=== PATIENT | female | born 1980 | race Caucasian/White ===

== ENCOUNTER 2019-09-27 04:52 | Inpatient (IN) | payer OTHER ==
[2019-09-27] MEDS ORDERED: Zofran 4 MG/2 ML VIAL ONE ×2 (05:12→05:17)
[2019-09-27] MEDS ORDERED: Zofran 4 MG/2 ML VIAL IV ONE (05:12)
[2019-09-27 05:45] LABS: ALKALINE PHOSPHATASE 44 U/L (38-126); ANION GAP 12.3 MEQ/L (5-15); BLOOD UREA NITROGEN 7 mg/dL (7-17); CHLORIDE 102 mmol/L (98-107); Calcium 8.7 mg/dL (8.4-10.2); Carbon Dioxide 28 mmol/L (22-30); Creatinine 1 0.74 mg/dL (0.52-1.04); Glucose 136 mg/dL (74-106); Potassium 3.5 mmol/L (3.5-5.1); SGOT/AST 61 U/L (14-36); SGPT/ALT 65 U/L (0-35); SODIUM 139 mmol/L (137-145); Total Protein 7.8 g/dL (6.3-8.2)
[2019-09-27 06:15] LABS: Hematocrit 41.6 % (35-47); Hemoglobin 13.7 gm/dl (12.0-16.0); Mean Cell Volume 99.3 fl (78-100); Mean Corpuscular Hemoglobin 32.7 pg (26-32); Mean Corpuscular Hgb Concent. 32.9 g/dl (32-36); Mean Platelet Volume 10.1 fl (7.5-11.0); Neutrophil % 85.5 % (36.0-66.0); Platelet Count 170 K/mm3 (150-450); Red Blood Count 4.19 M/mm3 (4.1-5.4); Red Cell Distribution Width 13.3 % (11.5-14.0)
[2019-09-27 06:16] LABS: Absolute Neutrophil Ct (ANC) 7.71 (1.4-6.9); BASOPHIL % 0.1 % (0.0-0.4); Basophil (Absolute #) 0.01 (0-0.4); Eosinophil (Absolute #) 0 (0-0.5); Lymphocytes % 8.9 % (24.0-44.0); Monocytes % 5.5 % (0.0-12.0)
--- NOTE | 2019-09-27 06:26 | ERPHSYRPT ---
- History of Present Illness Time Seen by Provider: 09/27/19 05:50 Source: patient Exam Limitations: no limitations Patient Subjective Stated Complaint: SOB Triage Nursing Assessment: Patient ambulated into ED and transferred self to bed. Patient A+O x3. Patient's skin flushed, warm and dry. Patient complains of increased SOB. Patient tested positive for COVID on Monday. Patient complains of N/V and diarrhea. Lungs clear a/p [place]. Non productive dry hacking cough. Patient complains of body aches to entire body 5/10. Physician History: Patient is a 38-year-old female presents to our ED for evaluation of nausea and vomiting. Patient is COVID positive. Symptoms started last Monday. Patient tested positive on Monday. Patient felt unwell throughout the weekend. [facility]. Patient was treated with IV fluids and discharged. Patient is here today as her symptoms have progressed. She cannot tolerate p.o. Patient complains of myalgias throughout her body. No fever. No worsening of shortness of breath. Symptoms are progressive. Symptoms are moderate in intensity. No specific worsening improving factors. Patient voices no other complaints at this time. Timing/Duration: week(s) Severity: moderate Modifying Factors: Improves With: nothing Associated Symptoms: nausea, vomiting, cough Allergies/Adverse Reactions: No Known Drug Allergies Allergy (Unverified 08/07/12 01:32) Home Medications: Aspirin 81 gm Chew 81 mg PO DAILY 11/20/11 [History] Ibuprofen DAILY 08/07/12 [History] Hx Tetanus, Diphtheria Vaccination/Date Given: Yes Hx Influenza Vaccination/Date Given: Yes Hx Pneumococcal Vaccination/Date Given: No Immunizations Up to Date: Yes Travel Risk - International Travel Have you traveled outside of the country in past 3 weeks: No Have you or anyone close to you been diagnosed with or: Yes Do your reside in a community with a known COVID-19 case?: Yes If Yes where:: [facility] - Coronavirus Screening Has patient experienced Coronavirus symptoms: Yes Symptoms experienced: fever(equal or > 100.4 F), respiratory symptoms ( i.e.Cought,shortness of breath), muscle pain, weakness Date of fever onset:: 09/25/19 Date of respiratory symptoms onset:: 09/20/19 - Review of Systems Constitutional: No Symptoms, No Fever, No Chills Eyes: No Symptoms Ears, Nose, & Throat: No Symptoms Respiratory: No Symptoms, No Cough, No Dyspnea Cardiac: No Symptoms, No Chest Pain, No Edema, No Syncope Abdominal/Gastrointestinal: No Symptoms, No Abdominal Pain, No Nausea, No Vomiting, No Diarrhea Genitourinary Symptoms: No Symptoms, No Dysuria Musculoskeletal: No Symptoms, No Back Pain, No Neck Pain Skin: No Rash Neurological: No Dizziness, No Focal Weakness, No Sensory Changes Psychological: No Symptoms Endocrine: No Symptoms All Other Systems: Reviewed and Negative - Past Medical History Pertinent Past Medical History: Yes Other Medical History: vericose vein pain - Past Surgical History Past Surgical History: Yes Gastrointestinal: Cholecystectomy Female Surgical History: Section Other Surgical History: tonsils. bilat uretal implants - Social History Smoking Status: Current every day smoker How long have you smoked: 13 Exposure to second hand smoke: Yes Drug Use: none Patient Lives Alone: No - Female History Hx Now: No - Nursing Vital Signs Nursing Vital Signs: Initial Vital Signs Temperature 99.8 F 09/27/19 05:46 Pulse Rate 84 09/27/19 05:46 Respiratory Rate 18 09/27/19 05:46 Blood Pressure 120/81 09/27/19 05:46 O2 Sat by Pulse Oximetry 96 09/27/19 05:46 Pain Scale Pain Intensity 5 - Physical Exam SpO2: 95 - Course Nursing assessment & vital signs reviewed: Yes - Radiology Exams Chest X-ray Interpretation: Teleradiologist Report (Lungs are hyperexpanded with bilateral left worse than right peripheral hazy opacities are predominantly in the mid and lower lobes. No consolidation.) Ordered Tests: Active Orders 24 hr Category Date Time Status Interface Developer STAT Care 09/27/19 05:09 Active EKG-ER Only STAT Care 09/27/19 05:08 Active IV Insertion STAT Care 09/27/19 05:08 Active Isolation, Initiate & Maintain Q12H Care 09/27/19 06:03 Active Pulse Oximetry (ED) STAT Care 09/27/19 05:08 Active CHEST 1 VIEW (PORTABLE) Stat Exams 09/27/19 05:09 Taken BLOOD CULTURE Stat Lab 09/27/19 05:15 Received CBC W DIFF Stat Lab 09/27/19 05:15 Completed CMP Stat Lab 09/27/19 05:15 Completed D-DIMER QUANTITATIVE Stat Lab 09/27/19 05:15 Completed TROPONIN Q3H Lab 09/27/19 05:15 Completed TROPONIN Q3H Lab 09/27/19 08:15 Ordered TROPONIN Q3H Lab 09/27/19 11:15 Ordered TROPONIN Q3H Lab 09/27/19 14:15 Ordered TROPONIN Q3H Lab 09/27/19 17:15 Ordered Transfer Order Routine Transfer 09/27/19 Ordered Medication Summary Discontinued Medications Generic Name Dose Route Start Last Admin Trade Name Jeffrey PRN Reason Stop Dose Admin Ondansetron HCl 4 mg 09/27/19 05:12 09/27/19 05:20 Zofran 4 Mg/2 Ml Vial IV 09/27/19 05:13 4 mg STAT ONE Administration Ondansetron HCl Confirm 09/27/19 05:12 Zofran 4 Mg/2 Ml Vial Administered 09/27/19 05:13 Dose 4 mg .ROUTE .STK-MED ONE Ondansetron HCl Confirm 09/27/19 05:17 Zofran 4 Mg/2 Ml Vial Administered 09/27/19 05:18 Dose 4 mg .ROUTE .STK-MED ONE Lab/Rad Data: Laboratory Result Diagrams 09/27/19 05:15 09/27/19 05:15 Laboratory Results 09/27/19 09/27/19 09/27/19 Range/Units 05:15 05:15 05:15 WBC (4.0-10.5) K/mm3 RBC (4.1-5.4) M/mm3 Hgb (12.0-16.0) gm/dl Hct (35-47) % MCV (78-100) fl MCH (26-32) pg MCHC (32-36) g/dl RDW (11.5-14.0) % Plt Count (150-450) K/mm3 MPV (7.5-11.0) fl Gran % (36.0-66.0) % Eos # (Auto) (0-0.5) Absolute Lymphs (auto) (1.0-4.6) Absolute Monos (auto) (0.0-1.3) Lymphocytes % (24.0-44.0) % Monocytes % (0.0-12.0) % Eosinophils % (0.00-5.0) % Basophils % (0.0-0.4) % Absolute Granulocytes (1.4-6.9) Basophils # (0-0.4) D-Dimer 442 (215-500) ng/mL Sodium 139 (137-145) mmol/L Potassium 3.5 (3.5-5.1) mmol/L Chloride 102 (98-107) mmol/L Carbon Dioxide 28 (22-30) mmol/L Anion Gap 12.3 (5-15) MEQ/L BUN 7 (7-17) mg/dL Creatinine 0.74 (0.52-1.04) mg/dL Estimated GFR > 60.0 ML/MIN Glucose 136 H (74-106) mg/dL Calcium 8.7 (8.4-10.2) mg/dL Total Bilirubin 0.80 (0.2-1.3) mg/dL AST 61 H (14-36) U/L ALT 65 H (0-35) U/L Alkaline Phosphatase 44 (38-126) U/L Troponin I < 0.012 (0.000-0.034) ng/mL Serum Total Protein 7.8 (6.3-8.2) g/dL Albumin 4.0 (3.5-5.0) g/dL 06// Range/Units 05:15 WBC 9.0 (4.0-10.5) K/mm3 RBC 4.19 (4.1-5.4) M/mm3 Hgb 13.7 (12.0-16.0) gm/dl Hct 41.6 (35-47) % MCV 99.3 (78-100) fl MCH 32.7 H (26-32) pg MCHC 32.9 (32-36) g/dl RDW 13.3 (11.5-14.0) % Plt Count 170 (150-450) K/mm3 MPV 10.1 (7.5-11.0) fl Gran % 85.5 H (36.0-66.0) % Eos # (Auto) 0 (0-0.5) Absolute Lymphs (auto) 0.80 L (1.0-4.6) Absolute Monos (auto) 0.50 (0.0-1.3) Lymphocytes % 8.9 L (24.0-44.0) % Monocytes % 5.5 (0.0-12.0) % Eosinophils % 0.0 (0.00-5.0) % Basophils % 0.1 (0.0-0.4) % Absolute Granulocytes 7.71 H (1.4-6.9) Basophils # 0.01 (0-0.4) D-Dimer (215-500) ng/mL Sodium (137-145) mmol/L Potassium (3.5-5.1) mmol/L Chloride (98-107) mmol/L Carbon Dioxide (22-30) mmol/L Anion Gap (5-15) MEQ/L BUN (7-17) mg/dL Creatinine (0.52-1.04) mg/dL Estimated GFR ML/MIN Glucose (74-106) mg/dL Calcium (8.4-10.2) mg/dL Total Bilirubin (0.2-1.3) mg/dL AST (14-36) U/L ALT (0-35) U/L Alkaline Phosphatase (38-126) U/L Troponin I (0.000-0.034) ng/mL Serum Total Protein (6.3-8.2) g/dL Albumin (3.5-5.0) g/dL - Progress Progress: improved Progress Note: 09/27/19 06:38 Patient reassessed. She feels somewhat better after Zofran administration. No nausea or vomiting at this time. Case discussed with Dr. Fraga who accepts patient to observation to our COVID unit. Plan of care discussed the patient. She agrees to admission to [facility] for further evaluation and treatment. Discussed with .: Keisha Will see patient in: hospital (observation) Counseled pt/family regarding: lab results, diagnosis, rad results - Departure Departure Disposition: Observation Clinical Impression: COVID-19, Nausea & vomiting Condition: Stable Critical Care Time: No Referrals: ALYSON SHELLEY [Primary Care Provider] -
[2019-09-27] MEDS: Sodium Chloride 0.9% 1000 ML 1,000 ML IV SCH ×2 (07:03→17:20)
[2019-09-27] MEDS ORDERED: Zofran 4 MG/2 ML VIAL IV PRN (07:40)
[2019-09-27] MEDS: MORPHINE SULFATE 4 MG INJ IV PRN ×4 (07:50→21:28)
[2019-09-27] MEDS: TYLENOL 325 MG PO PRN ×3 (07:50→21:27)
[2019-09-27] MEDS ORDERED: PHARMACY DOSING REQUEST MC ONE (09:00)
[2019-09-27] MEDS ORDERED: REMDESIVIR IV SCH (09:00)
[2019-09-27] MEDS ORDERED: REMDESIVIR 200 MG in Sodium Chloride 0.9% 250 ML 210 ML IV ONE (09:00)
--- NOTE | 2019-09-27 09:08 | XRAY ---
Indication: Short of breath. Covid 19. Comparison: None Portable chest demonstrates mild bilateral interstitial alveolar opacities greatest near the lung bases. No consolidation/large effusion. Remaining heart and bony thorax unremarkable. Comment: Preliminary interpretation was made by [facility]. No critical discrepancy.
[2019-09-27] MEDS ORDERED: VENTOLIN COMMON CANISTER IH PRN (10:14)
[2019-09-27] MEDS: Zofran 4 MG/2 ML VIAL IV PRN ×3 (12:31→21:27)
--- NOTE | 2019-09-27 19:03 | PCM.HP ---
History of Present Illness - Chief Complaint Chief Complaint: covid-19 (+), SOB, nausea vomiting and diarrhea for 1 week History of Present Illness: is a 38 year old female.Patient presents to our ED for evaluation of nausea and vomiting. Patient is COVID positive. Symptoms started last Monday. Patient tested positive on Monday. Patient felt unwell throughout the weekend. She went to [facility] for nausea and vomiting. Patient was treated with IV fluids and discharged. Patient is here today as her symptoms have progressed. She cannot tolerate p.o. Patient complains of myalgias throughout her body. No fever. No worsening of shortness of breath. Symptoms are progressive. Symptoms are moderate in intensity. No specific worsening improving factors. Patient voices no other complaints at this time. Timing/Duration: week(s) Severity: moderate Modifying Factors: Improves With: nothing Associated Symptoms: nausea, vomiting, cough patient has been sick for last 2-3 days and now for nausea vomiting and diarrhea is getting worse as well as she is also started having more and more shortness of breath and myalgia. - Review of Systems Constitutional: Fever, Chills, Malaise, Weakness Eyes: No Symptoms Ears, Nose, & Throat: No Symptoms Respiratory: Short Of Breath, No Cough Cardiac: No Chest Pain, No Edema, No Syncope Abdominal/Gastrointestinal: No Abdominal Pain, No Nausea, No Vomiting, No Diarrhea Genitourinary Symptoms: No Dysuria Musculoskeletal: No Back Pain, No Neck Pain Skin: No Rash Neurological: No Dizziness, No Focal Weakness, No Sensory Changes Psychological: No Symptoms Endocrine: No Symptoms Hematologic/Lymphatic: No Symptoms Immunological/Allergic: No Symptoms Medications & Allergies Home Medications: Home Medication List Albuterol 8 gm Mdi Hfa [Ventolin Hfa MDI] 2 puffs IH Q4H PRN PRN 09/27/19 [History Confirmed 09/27/19] Mometasone/Formoterol [Dulera 100 Mcg/5 Mcg Inhaler] 2 puff IH BID 09/27/19 [ History Confirmed 09/27/19] Allergies/Adverse Reactions: Allergies Allergy/AdvReac Type Severity Reaction Status Date / Time Sulfa (Sulfonamide Allergy Severe Hives Verified 09/27/19 09:15 Antibiotics) - Past Medical History Past Medical History: Yes Neurological History: No Pertinent History ENT History: No Pertinent History Cardiac History: No Pertinent History Respiratory History: Asthma, Pulmonary Embolism Endocrine Medical History: No Pertinent History Musculoskelatal History: No Pertinent History GI Medical History: Gallbladder Disease History: No Pertinent History Pyscho-Social History: No Pertinent History Reproductive Disorders: No Pertinent History Comment: vericose vein pain. DVT - Female History Are you now?: No - Past Surgical History Past Surgical History: Yes Neuro Surgical History: No Pertinent History Cardiac History: No Pertinent History Respiratory Surgery: No Pertinent History GI Surgical History: Cholecystectomy Genitourinary Surgical Hx: No Pertinent History Female Surgical History: Section Other Surgical History: tonsils. bilat uretal implants - Social History Smoking Status: Never smoker How long have you smoked: 13 Exposure to second hand smoke: No Alcohol: None Drug Use: none - Physical Exam Vital Signs: Vital Signs - 24 hr Temp Pulse Resp BP Pulse Ox 09/27/19 18:00 17 09/27/19 17:00 100.2 F 86 16 124/59 94 L 09/27/19 16:15 28 H 09/27/19 16:00 77 28 H 96 09/27/19 14:00 76 22 96 09/27/19 12:00 98.7 F 79 17 118/56 93 L 09/27/19 11:00 18 09/27/19 10:41 102.8 F 78 16 116/65 95 09/27/19 10:26 84 18 96 09/27/19 10:10 18 95 09/27/19 10:00 72 18 88 L 09/27/19 09:00 18 09/27/19 07:40 95 09/27/19 06:57 95 09/27/19 06:06 80 18 103/65 95 09/27/19 05:46 99.8 F 84 18 120/81 98 Oxygen-Last 24 hours Oxygen Flowrate (L/min)-RT 2 Oxygen Flowrate (L/min)-RT 2 Oxygen Flowrate (L/min)-RT 2 General Appearance: moderate distress, alert Neurologic Exam: alert, oriented x 3, cooperative, normal mood/affect, nml cerebellar function, nml station & gait, sensation nml, No motor deficits Eye Exam: PERRL/EOMI, eyes nml inspection Ears, Nose, Throat Exam: normal ENT inspection, TMs normal, pharynx normal, moist mucous membranes Neck Exam: normal inspection, non-tender, supple, full range of motion Respiratory Exam: respiratory distress, accessory muscle use, wheezing Cardiovascular Exam: regular rate/rhythm, normal heart sounds, normal peripheral pulses Gastrointestinal/Abdomen Exam: soft, normal bowel sounds, No tenderness, No mass Back Exam: normal inspection, normal range of motion, No CVA tenderness, No vertebral tenderness Extremity Exam: normal inspection, normal range of motion, pelvis stable Skin Exam: normal color, warm, dry, No rash Lymphatic Exam: No adenopathy Results - Labs Lab/Micro Results: Accuchecks Date 09/27/19 Date 09/27/19 Time 18:00 Time 11:43 Accucheck Value: 96 Accucheck Value: 106 Lab Results-Last 24 Hours 09/27/19 09/27/19 09/27/19 Range/Units 05:15 05:15 05:15 WBC 9.0 (4.0-10.5) K/mm3 RBC 4.19 (4.1-5.4) M/mm3 Hgb 13.7 (12.0-16.0) gm/dl Hct 41.6 (35-47) % MCV 99.3 (78-100) fl MCH 32.7 H (26-32) pg MCHC 32.9 (32-36) g/dl RDW 13.3 (11.5-14.0) % Plt Count 170 (150-450) K/mm3 MPV 10.1 (7.5-11.0) fl Gran % 85.5 H (36.0-66.0) % Eos # (Auto) 0 (0-0.5) Absolute Lymphs (auto) 0.80 L (1.0-4.6) Absolute Monos (auto) 0.50 (0.0-1.3) Lymphocytes % 8.9 L (24.0-44.0) % Monocytes % 5.5 (0.0-12.0) % Eosinophils % 0.0 (0.00-5.0) % Basophils % 0.1 (0.0-0.4) % Absolute Granulocytes 7.71 H (1.4-6.9) Basophils # 0.01 (0-0.4) D-Dimer 442 (215-500) ng/mL Sodium 139 (137-145) mmol/L Potassium 3.5 (3.5-5.1) mmol/L Chloride 102 (98-107) mmol/L Carbon Dioxide 28 (22-30) mmol/L Anion Gap 12.3 (5-15) MEQ/L BUN 7 (7-17) mg/dL Creatinine 0.74 (0.52-1.04) mg/dL Estimated GFR > 60.0 ML/MIN Glucose 136 H (74-106) mg/dL Calcium 8.7 (8.4-10.2) mg/dL Total Bilirubin 0.80 (0.2-1.3) mg/dL AST 61 H (14-36) U/L ALT 65 H (0-35) U/L Alkaline Phosphatase 44 (38-126) U/L Troponin I (0.000-0.034) ng/mL Serum Total Protein 7.8 (6.3-8.2) g/dL Albumin 4.0 (3.5-5.0) g/dL 09/27/19 09/27/19 09/27/19 Range/Units 05:15 08:15 11:30 WBC (4.0-10.5) K/mm3 RBC (4.1-5.4) M/mm3 Hgb (12.0-16.0) gm/dl Hct (35-47) % MCV (78-100) fl MCH (26-32) pg MCHC (32-36) g/dl RDW (11.5-14.0) % Plt Count (150-450) K/mm3 MPV (7.5-11.0) fl Gran % (36.0-66.0) % Eos # (Auto) (0-0.5) Absolute Lymphs (auto) (1.0-4.6) Absolute Monos (auto) (0.0-1.3) Lymphocytes % (24.0-44.0) % Monocytes % (0.0-12.0) % Eosinophils % (0.00-5.0) % Basophils % (0.0-0.4) % Absolute Granulocytes (1.4-6.9) Basophils # (0-0.4) D-Dimer (215-500) ng/mL Sodium (137-145) mmol/L Potassium (3.5-5.1) mmol/L Chloride (98-107) mmol/L Carbon Dioxide (22-30) mmol/L Anion Gap (5-15) MEQ/L BUN (7-17) mg/dL Creatinine (0.52-1.04) mg/dL Estimated GFR ML/MIN Glucose (74-106) mg/dL Calcium (8.4-10.2) mg/dL Total Bilirubin (0.2-1.3) mg/dL AST (14-36) U/L ALT (0-35) U/L Alkaline Phosphatase (38-126) U/L Troponin I < 0.012 < 0.012 < 0.012 (0.000-0.034) ng/mL Serum Total Protein (6.3-8.2) g/dL Albumin (3.5-5.0) g/dL 09/27/19 09/27/19 Range/Units 14:35 17:30 WBC (4.0-10.5) K/mm3 RBC (4.1-5.4) M/mm3 Hgb (12.0-16.0) gm/dl Hct (35-47) % MCV (78-100) fl MCH (26-32) pg MCHC (32-36) g/dl RDW (11.5-14.0) % Plt Count (150-450) K/mm3 MPV (7.5-11.0) fl Gran % (36.0-66.0) % Eos # (Auto) (0-0.5) Absolute Lymphs (auto) (1.0-4.6) Absolute Monos (auto) (0.0-1.3) Lymphocytes % (24.0-44.0) % Monocytes % (0.0-12.0) % Eosinophils % (0.00-5.0) % Basophils % (0.0-0.4) % Absolute Granulocytes (1.4-6.9) Basophils # (0-0.4) D-Dimer (215-500) ng/mL Sodium (137-145) mmol/L Potassium (3.5-5.1) mmol/L Chloride (98-107) mmol/L Carbon Dioxide (22-30) mmol/L Anion Gap (5-15) MEQ/L BUN (7-17) mg/dL Creatinine (0.52-1.04) mg/dL Estimated GFR ML/MIN Glucose (74-106) mg/dL Calcium (8.4-10.2) mg/dL Total Bilirubin (0.2-1.3) mg/dL AST (14-36) U/L ALT (0-35) U/L Alkaline Phosphatase (38-126) U/L Troponin I < 0.012 < 0.012 (0.000-0.034) ng/mL Serum Total Protein (6.3-8.2) g/dL Albumin (3.5-5.0) g/dL Accuchecks Date 09/27/19 Date 09/27/19 Time 18:00 Time 11:43 Accucheck Value: 96 Accucheck Value: 106 COVID 19 PCR test Positive - Radiology Impressions Radiology Exams & Impressions: Radiology Procedures Category Date Time Status CHEST 1 VIEW (PORTABLE) Stat Exams 09/27/19 05:09 Completed RAD/CHEST 1 VIEW (PORTABLE) Indication: Short of breath. Covid 19. Comparison: None Portable chest demonstrates mild bilateral interstitial alveolar opacities greatest near the lung bases. No consolidation/large effusion. Remaining heart and bony thorax unremarkable - Other Procedures and Tests Respiratory Therapy 09/27/19 10:10 Respiratory Therapy Assessment DAILY 09/27/19 10:25 Oxygen Nasal Cannula 2 lpm 09/27/19 11:12 RT Screen per Nursing Assess ONCE Assessment/Plan (1) Pneumonia due to 2019 novel coronavirus Current Visit: Yes Status: Acute Assessment & Plan: Medication Report Acetaminophen (Tylenol 325 Mg) 650 mg PO Q4H PRN PRN PRN Reason: PAIN AND/OR FEVER Stop: 10/27/19 07:40 Last Admin: 09/27/19 17:19 Dose: 650 mg MAR PAIN Document 09/27/19 17:19 BA (Rec: 09/27/19 17:19 [id number]) Reassesment Comment t 100.2 Sodium Chloride (Sodium Chloride 0.9% 1000 Ml) 1,000 mls @ 150 mls/hr IV .Q6H40M STEPHANIE Stop: 10/27/19 06:59 Last Admin: 09/27/19 17:20 Dose: 100 mls/hr Infusion/Titration Document 09/27/19 17:20 BA (Rec: 09/27/19 17:20 BA [id number]) Dosing & Rate IV Rate 100 Increase/Decrease Started/Running Cumulative Dose Not Applicable IV Intake Cumulative Intake (Rx) 1,000 Container Volume 1,000 Volume Adjustment/Waste 0 Morphine Sulfate (Morphine Sulfate 4 Mg Inj) 4 mg IV Q4H PRN PRN PRN Reason: PAIN Stop: 10/02/19 07:39 Last Admin: 09/27/19 17:43 Dose: 4 mg MAR PAIN Document 09/27/19 17:43 BA (Rec: 09/27/19 17:43 BA [id number]) Reassesment Location Generalized Pain Scale Used 0-10 Pain Scale Pain Intensity (0-10) 7 Comment b/p 124/59 Re-Assess: Pain Reassessment Document 09/27/19 18:13 BA (Rec: 09/27/19 18:44 BA [id number]) Pain Description Pain Scale Used 0-10 Pain Scale Pain Intensity (0-10) 2 Ondansetron HCl (Zofran 4 Mg/2 Ml Vial) 4 mg IV Q4H PRN PRN PRN Reason: NAUSEA/VOMITING Stop: 10/27/19 12:02 Last Admin: 09/27/19 17:19 Dose: 4 mg Comments: c/o nausea Discontinued Medications Remdesivir 200 mg/ Sodium (Chloride) 210 mls @ 110 mls/hr IV NOW ONE Stop: 09/27/19 10:54 Last Admin: 09/27/19 09:16 Dose: 110 mls/hr Non-Formulary Medication (Pharmacy Dosing Request) 0 each MC NOW ONE Stop: 09/27/19 09:01 Last Admin: 09/27/19 09:17 Dose: 100 each Comments: completed Ondansetron HCl (Zofran 4 Mg/2 Ml Vial) 4 mg IV STAT ONE Stop: 09/27/19 05:13 Last Admin: 09/27/19 05:20 Dose: 4 mg Med Admininistration (IV,IVP) Document 09/27/19 05:20 TR (Rec: 09/27/19 06:09 TR [id number]) Type of Administration Initial IV Push Yes Ondansetron HCl (Zofran 4 Mg/2 Ml Vial) 4 mg IV Q6H PRN PRN PRN Reason: NAUSEA/VOMITING Stop: 10/27/19 07:39 Last Admin: 09/27/19 07:50 Dose: 4 mg Comments: c/o nausea. Code(s): U07.1 - COVID-19; J12.89 - OTHER VIRAL PNEUMONIA (2) COVID-19 Current Visit: Yes Status: Acute Assessment & Plan: Laboratory Results 09/27/19 09/27/19 09/27/19 Range/Units 17:30 14:35 11:30 WBC (4.0-10.5) K/mm3 RBC (4.1-5.4) M/mm3 Hgb (12.0-16.0) gm/dl Hct (35-47) % MCV (78-100) fl MCH (26-32) pg MCHC (32-36) g/dl RDW (11.5-14.0) % Plt Count (150-450) K/mm3 MPV (7.5-11.0) fl Gran % (36.0-66.0) % Eos # (Auto) (0-0.5) Absolute Lymphs (auto) (1.0-4.6) Absolute Monos (auto) (0.0-1.3) Lymphocytes % (24.0-44.0) % Monocytes % (0.0-12.0) % Eosinophils % (0.00-5.0) % Basophils % (0.0-0.4) % Absolute Granulocytes (1.4-6.9) Basophils # (0-0.4) D-Dimer (215-500) ng/mL Sodium (137-145) mmol/L Potassium (3.5-5.1) mmol/L Chloride (98-107) mmol/L Carbon Dioxide (22-30) mmol/L Anion Gap (5-15) MEQ/L BUN (7-17) mg/dL Creatinine (0.52-1.04) mg/dL Estimated GFR ML/MIN Glucose (74-106) mg/dL Calcium (8.4-10.2) mg/dL Total Bilirubin (0.2-1.3) mg/dL AST (14-36) U/L ALT (0-35) U/L Alkaline Phosphatase (38-126) U/L Troponin I < 0.012 < 0.012 < 0.012 (0.000-0.034) ng/mL Serum Total Protein (6.3-8.2) g/dL Albumin (3.5-5.0) g/dL 09/27/19 09/27/19 09/27/19 Range/Units 08:15 05:15 05:15 WBC (4.0-10.5) K/mm3 RBC (4.1-5.4) M/mm3 Hgb (12.0-16.0) gm/dl Hct (35-47) % MCV (78-100) fl MCH (26-32) pg MCHC (32-36) g/dl RDW (11.5-14.0) % Plt Count (150-450) K/mm3 MPV (7.5-11.0) fl Gran % (36.0-66.0) % Eos # (Auto) (0-0.5) Absolute Lymphs (auto) (1.0-4.6) Absolute Monos (auto) (0.0-1.3) Lymphocytes % (24.0-44.0) % Monocytes % (0.0-12.0) % Eosinophils % (0.00-5.0) % Basophils % (0.0-0.4) % Absolute Granulocytes (1.4-6.9) Basophils # (0-0.4) D-Dimer 442 (215-500) ng/mL Sodium (137-145) mmol/L Potassium (3.5-5.1) mmol/L Chloride (98-107) mmol/L Carbon Dioxide (22-30) mmol/L Anion Gap (5-15) MEQ/L BUN (7-17) mg/dL Creatinine (0.52-1.04) mg/dL Estimated GFR ML/MIN Glucose (74-106) mg/dL Calcium (8.4-10.2) mg/dL Total Bilirubin (0.2-1.3) mg/dL AST (14-36) U/L ALT (0-35) U/L Alkaline Phosphatase (38-126) U/L Troponin I < 0.012 < 0.012 (0.000-0.034) ng/mL Serum Total Protein (6.3-8.2) g/dL Albumin (3.5-5.0) g/dL 09/27/19 09/27/19 Range/Units 05:15 05:15 WBC 9.0 (4.0-10.5) K/mm3 RBC 4.19 (4.1-5.4) M/mm3 Hgb 13.7 (12.0-16.0) gm/dl Hct 41.6 (35-47) % MCV 99.3 (78-100) fl MCH 32.7 H (26-32) pg MCHC 32.9 (32-36) g/dl RDW 13.3 (11.5-14.0) % Plt Count 170 (150-450) K/mm3 MPV 10.1 (7.5-11.0) fl Gran % 85.5 H (36.0-66.0) % Eos # (Auto) 0 (0-0.5) Absolute Lymphs (auto) 0.80 L (1.0-4.6) Absolute Monos (auto) 0.50 (0.0-1.3) Lymphocytes % 8.9 L (24.0-44.0) % Monocytes % 5.5 (0.0-12.0) % Eosinophils % 0.0 (0.00-5.0) % Basophils % 0.1 (0.0-0.4) % Absolute Granulocytes 7.71 H (1.4-6.9) Basophils # 0.01 (0-0.4) D-Dimer (215-500) ng/mL Sodium 139 (137-145) mmol/L Potassium 3.5 (3.5-5.1) mmol/L Chloride 102 (98-107) mmol/L Carbon Dioxide 28 (22-30) mmol/L Anion Gap 12.3 (5-15) MEQ/L BUN 7 (7-17) mg/dL Creatinine 0.74 (0.52-1.04) mg/dL Estimated GFR > 60.0 ML/MIN Glucose 136 H (74-106) mg/dL Calcium 8.7 (8.4-10.2) mg/dL Total Bilirubin 0.80 (0.2-1.3) mg/dL AST 61 H (14-36) U/L ALT 65 H (0-35) U/L Alkaline Phosphatase 44 (38-126) U/L Troponin I (0.000-0.034) ng/mL Serum Total Protein 7.8 (6.3-8.2) g/dL Albumin 4.0 (3.5-5.0) g/dL Code(s): U07.1 - COVID-19 (3) Nausea & vomiting Current Visit: Yes Status: Acute Qualifiers: Vomiting Intractability: unspecified Code(s): R11.2 - NAUSEA WITH VOMITING, UNSPECIFIED (4) Shortness of breath Current Visit: Yes Status: Acute Code(s): R06.02 - SHORTNESS OF BREATH
[2019-09-27] MEDS: PATIENT OWN MEDICATION IH SCH (21:34)
[2019-09-27] MEDS ORDERED: FORMOTEROL IH SCH (22:00)
[2019-09-27] MEDS ORDERED: MOMETASONE IH SCH (22:00)
[2019-09-28] MEDS: Sodium Chloride 0.9% 1000 ML 1,000 ML IV SCH ×4 (00:30→20:32)
[2019-09-28] MEDS: Zofran 4 MG/2 ML VIAL IV PRN ×5 (02:08→21:33)
[2019-09-28] MEDS: MORPHINE SULFATE 4 MG INJ IV PRN ×5 (02:08→21:33)
[2019-09-28] MEDS: PATIENT OWN MEDICATION IH SCH ×2 (07:30→19:05)
[2019-09-28 08:38] LABS: Hematocrit 36.6 % (35-47); Hemoglobin 11.6 gm/dl (12.0-16.0); Mean Cell Volume 102.5 fl (78-100); Mean Corpuscular Hemoglobin 32.5 pg (26-32); Mean Corpuscular Hgb Concent. 31.7 g/dl (32-36); Mean Platelet Volume 10.4 fl (7.5-11.0); Platelet Count 171 K/mm3 (150-450); Red Blood Count 3.57 M/mm3 (4.1-5.4); Red Cell Distribution Width 13.5 % (11.5-14.0); White Blood Count 6.4 K/mm3 (4.0-10.5)
[2019-09-28] MEDS ORDERED: ENOXAPARIN SODIUM SQ ONE (09:30)
[2019-09-28 09:39] LABS: ALBUMIN 3.3 g/dL (3.5-5.0); ALKALINE PHOSPHATASE 42 U/L (38-126); ANION GAP 13.1 MEQ/L (5-15); BLOOD UREA NITROGEN 11 mg/dL (7-17); CHLORIDE 105 mmol/L (98-107); Calcium 7.9 mg/dL (8.4-10.2); Carbon Dioxide 25 mmol/L (22-30); Creatinine 1 0.57 mg/dL (0.52-1.04); Glucose 113 mg/dL (74-106); Potassium 3.6 mmol/L (3.5-5.1); SGOT/AST 80 U/L (14-36); SGPT/ALT 79 U/L (0-35); SODIUM 139 mmol/L (137-145); Total Protein 6.6 g/dL (6.3-8.2)
[2019-09-28] MEDS: REMDESIVIR IV SCH (09:44)
[2019-09-28] MEDS: SODIUM CHLORIDE 0.9% IV SCH (09:44)
[2019-09-28] MEDS: PROTONIX 40 MG IV IV SCH (11:22)
[2019-09-28 11:23] LABS: Appearance SLIGHTLY CLOUDY (CLEAR); Bilirubin NEGATIVE (NEGATIVE); Blood NEGATIVE Ery/ul (0-5); Glucose NEGATIVE (NEGATIVE); Ketones TRACE (NEGATIVE); Leukocyte Esterase NEGATIVE (NEGATIVE); Mucus SLIGHT /HPF (NEGATIVE); Nitrite NEGATIVE (NEGATIVE); Protein,Urine Dip 100 (Negative); Specific Gravity 1.029 (1.005-1.025); Urobilinogen 4 mg/dL (0-1)
[2019-09-28 11:57] LABS: BAND 2 % (0.0-2.0); Basophil 1 % (0.0-1.0); Eosinophil 1 % (0.00-3.0); Lymphocytes 22 % (24-44); Monocyte 8 % (0.0-12.0); Neutrophils 66 % (36.0-66.0); Total Cells Counted 100
[2019-09-28 11:58] LABS: Platelet Estimate NORMAL (NORMAL)
[2019-09-28 17:14] LABS: A-aADO2 139; ABG HEMOGLOBIN 12.5; ABG POTASSIUM 3.5 (3.5-5.1); ARTERIAL BLOOD GAS BASE EXCESS -0.1 (-2.0-2.0); ARTERIAL BLOOD GAS FIO2 35 %; ARTERIAL BLOOD GAS PCO2 36 mmHg (35-45); ARTERIAL BLOOD GAS PO2 66 mmHg (75-100); ARTERIAL BLOOD GAS pH 7.43 (7.35-7.45); CARBOXYHEMOGLOBIN 0.8 % THgb (0.0-6.9); HCO3- 23.9 (22-28); HGB O2 SAT 93.4 g/dF (94-100); Methhemoglobin 0.9 % (1.4-1.5); paO2 pAO1 0.32
[2019-09-28 17:15] LABS: ABG SITE LEFT RADIAL; ALLEN TEST OK? YES
[2019-09-28] MEDS: ELIQUIS 2.5 MG TABLET PO SCH (17:30)
[2019-09-28] MEDS ORDERED: ELIQUIS 2.5 MG TABLET PO SCH (18:00)
--- NOTE | 2019-09-28 20:53 | XRAY ---
Indication: Short of breath. COVID 19. Comparison: September 27, 2019. Portable chest limited due to suboptimal technique and patient body habitus. Stable mild bibasilar interstitial alveolar opacities without consolidation/large effusion. Remaining heart and lungs unremarkable. Comment: Preliminary interpretation was made by [facility]. No critical discrepancy.
[2019-09-29] MEDS: TYLENOL 325 MG PO PRN ×2 (00:53→12:14)
[2019-09-29] MEDS: Zofran 4 MG/2 ML VIAL IV PRN ×5 (02:32→21:37)
[2019-09-29] MEDS: Sodium Chloride 0.9% 1000 ML 1,000 ML IV SCH ×3 (02:32→16:20)
[2019-09-29] MEDS: MORPHINE SULFATE 4 MG INJ IV PRN ×4 (02:33→21:41)
[2019-09-29 06:38] LABS: ALKALINE PHOSPHATASE 32 U/L (38-126); ANION GAP 11.1 MEQ/L (5-15); BLOOD UREA NITROGEN 10 mg/dL (7-17); CHLORIDE 106 mmol/L (98-107); Calcium 7.6 mg/dL (8.4-10.2); Carbon Dioxide 26 mmol/L (22-30); Creatinine 1 0.57 mg/dL (0.52-1.04); Glucose 105 mg/dL (74-106); SGOT/AST 50 U/L (14-36); SGPT/ALT 71 U/L (0-35); SODIUM 139 mmol/L (137-145); Total Protein 6.2 g/dL (6.3-8.2)
[2019-09-29 06:44] LABS: Hematocrit 34.3 % (35-47); Mean Cell Volume 102.1 fl (78-100); Mean Corpuscular Hemoglobin 32.7 pg (26-32); Mean Corpuscular Hgb Concent. 32.1 g/dl (32-36); Mean Platelet Volume 10.4 fl (7.5-11.0); Platelet Count 202 K/mm3 (150-450); Red Blood Count 3.36 M/mm3 (4.1-5.4); White Blood Count 5.2 K/mm3 (4.0-10.5)
[2019-09-29] MEDS: PATIENT OWN MEDICATION IH SCH ×2 (08:00→19:31)
[2019-09-29] MEDS: SODIUM CHLORIDE 0.9% IV SCH (09:03)
[2019-09-29] MEDS: ELIQUIS 2.5 MG TABLET PO SCH ×2 (09:03→21:26)
[2019-09-29] MEDS: PROTONIX 40 MG IV IV SCH (09:03)
[2019-09-29] MEDS: REMDESIVIR IV SCH (09:03)
[2019-09-29 09:20] LABS: Lymphocytes 31 % (24-44); Monocyte 6 % (0.0-12.0); Neutrophils 63 % (36.0-66.0); Total Cells Counted 100
[2019-09-29 09:21] LABS: Platelet Estimate NORMAL (NORMAL)
[2019-09-29] MEDS ORDERED: ENOXAPARIN SODIUM SQ SCH (10:00)
[2019-09-30] MEDS: Sodium Chloride 0.9% 1000 ML 1,000 ML IV SCH ×4 (00:11→21:01)
[2019-09-30] MEDS: TYLENOL 325 MG PO PRN ×2 (00:15→21:09)
[2019-09-30] MEDS: Zofran 4 MG/2 ML VIAL IV PRN ×4 (02:34→17:15)
[2019-09-30] MEDS: MORPHINE SULFATE 4 MG INJ IV PRN (02:34)
[2019-09-30 05:44] LABS: ALKALINE PHOSPHATASE 38 U/L (38-126); ANION GAP 11.7 MEQ/L (5-15); BLOOD UREA NITROGEN 10 mg/dL (7-17); CHLORIDE 109 mmol/L (98-107); Calcium 7.7 mg/dL (8.4-10.2); Carbon Dioxide 22 mmol/L (22-30); Creatinine 1 0.49 mg/dL (0.52-1.04); Glucose 111 mg/dL (74-106); Potassium 3.8 mmol/L (3.5-5.1); SGOT/AST 41 U/L (14-36); SGPT/ALT 66 U/L (0-35); SODIUM 139 mmol/L (137-145); Total Protein 6.2 g/dL (6.3-8.2)
[2019-09-30 05:51] LABS: Hematocrit 34.9 % (35-47); Hemoglobin 11.3 gm/dl (12.0-16.0); Mean Cell Volume 101.2 fl (78-100); Mean Corpuscular Hemoglobin 32.8 pg (26-32); Mean Corpuscular Hgb Concent. 32.4 g/dl (32-36); Mean Platelet Volume 10.4 fl (7.5-11.0); Platelet Count 237 K/mm3 (150-450); Red Blood Count 3.45 M/mm3 (4.1-5.4); White Blood Count 6.7 K/mm3 (4.0-10.5)
[2019-09-30] MEDS: PATIENT OWN MEDICATION IH SCH ×2 (07:30→19:30)
[2019-09-30 07:50] LABS: Eosinophil 1 % (0.00-3.0); Lymphocytes 13 % (24-44); Monocyte 9 % (0.0-12.0); Neutrophils 77 % (36.0-66.0); Platelet Estimate NORMAL (NORMAL); Total Cells Counted 100; Toxic Granulation 1+
[2019-09-30] MEDS: PROTONIX 40 MG IV IV SCH (09:47)
[2019-09-30] MEDS: ELIQUIS 2.5 MG TABLET PO SCH ×2 (09:47→11:23)
[2019-09-30] MEDS: SODIUM CHLORIDE 0.9% IV SCH (09:56)
[2019-09-30] MEDS: REMDESIVIR IV SCH (09:56)
[2019-09-30] MEDS: Ativan 1 MG PO PRN (21:09)
[2019-10-01] MEDS: Sodium Chloride 0.9% 1000 ML 1,000 ML IV SCH ×2 (03:35→07:31)
[2019-10-01] MEDS: Zofran 4 MG/2 ML VIAL IV PRN ×2 (03:45→23:49)
[2019-10-01] MEDS: MORPHINE SULFATE 4 MG INJ IV PRN ×2 (03:45→23:49)
[2019-10-01] MEDS: PATIENT OWN MEDICATION IH SCH ×2 (09:06→19:40)
[2019-10-01] MEDS: Ativan 1 MG PO PRN (09:34)
[2019-10-01] MEDS: TYLENOL 325 MG PO PRN ×2 (09:34→21:07)
[2019-10-01] MEDS: PROTONIX 40 MG IV IV SCH (09:35)
[2019-10-01] MEDS: SODIUM CHLORIDE 0.9% IV SCH (10:01)
[2019-10-01] MEDS: REMDESIVIR IV SCH (10:01)
[2019-10-01] MEDS ORDERED: PHARMACY DOSING REQUEST MC ONE (10:25)
[2019-10-01] MEDS ORDERED: Ativan 1 MG PO PRN (10:41)
--- NOTE | 2019-10-01 11:10 | XRAY ---
Indication: Pneumonia. Positive Covid 19. Comparison: September 26 and September 27, 2018. Portable chest demonstrates mild worsening patchy bilateral interstitial alveolar opacities and new small bibasilar effusions. Remaining heart and bony thorax unremarkable.
[2019-10-01 11:45] LABS: Hematocrit 36.6 % (35-47); Hemoglobin 12.2 gm/dl (12.0-16.0); Mean Cell Volume 98.9 fl (78-100); Mean Corpuscular Hgb Concent. 33.3 g/dl (32-36); Mean Platelet Volume 10.1 fl (7.5-11.0); Platelet Count 282 K/mm3 (150-450); Red Cell Distribution Width 12.8 % (11.5-14.0); White Blood Count 5.2 K/mm3 (4.0-10.5)
--- NOTE | 2019-10-01 12:15 | XRAY ---
Indication: Pneumonia. Positive Covid 19. Multiple contiguous axial images obtained through the chest using 100 cc Isovue 370 contrast and PE protocol. Comparison: None There is good opacification of the pulmonary arteries to include the lobar and segmental branches. No filling defect/pulmonary embolus. Heart is not enlarged. Aorta is normal in course and caliber. A few small subcentimeter mediastinal and bilateral hilar lymph nodes. No pathologic mediastinal/hilar lymphadenopathy. Examination of the lung parenchyma demonstrates multiple peripheral rounded groundglass opacities with multifocal peripheral consolidations and peripheral thickened intralobular lines (crazy paving). Appearance would favor Covid 19 pneumonia. Also small bilateral pleural effusions. Bony thorax intact with minimal degenerative changes throughout the spine. Limited upper abdomen demonstrates fatty liver and 12.7 cm splenomegaly. Impression: 1. Negative pulmonary embolus. 2. Covid 19 pneumonia imaging classification is typical appearance. Other processes such as influenza pneumonia and organizing pneumonia, as can be seen with drug toxicity and connective tissue disease, can cause a similar imaging appearance. 3. Incidental fatty liver and splenomegaly.
[2019-10-01] MEDS: ENOXAPARIN SODIUM SQ SCH (12:23)
[2019-10-01] MEDS: Sodium Chloride 0.9% 10 ML FLUSH Syringe IV SCH (22:27)
[2019-10-02] MEDS: Sodium Chloride 0.9% 10 ML FLUSH Syringe IV SCH ×4 (05:37→22:43)
[2019-10-02] MEDS: PATIENT OWN MEDICATION IH SCH ×2 (08:30→19:00)
[2019-10-02] MEDS: ENOXAPARIN SODIUM SQ SCH (09:32)
[2019-10-02] MEDS: PROTONIX 40 MG IV IV SCH (09:32)
[2019-10-03] MEDS: Sodium Chloride 0.9% 10 ML FLUSH Syringe IV SCH (06:22)
[2019-10-03] MEDS: PROTONIX 40 MG IV IV SCH (10:30)
[2019-10-03] MEDS: ENOXAPARIN SODIUM SQ SCH (10:30)
[2019-10-03 11:06] VITALS: O2SAT 92
[2019-10-03 12:33] VITALS: BP 143/81; PULSE 52
--- NOTE | 2019-10-03 13:50 | CONS ---
CONSULT DATE: 10/02/2019 REASON FOR CONSULTATION: Evaluation of shortness of breath. The patient is COVID-19 positive. 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 She tested positive about a week ago at [facility]. She was however discharged from that facility. Her symptoms got progressively worse over the next 2-3 days leading to another admission at [facility]. The patient was started and treated with Remdesivir per protocol which ended yesterday. I was requested to see her yesterday due to ongoing complaints. Patient has been requiring [address] chest was ordered with contrast per pulmonary embolism protocol. The CT was negative for pulmonary embolism. The patient however was noted to have confluent infiltrates mainly in subpleural distribution which is somewhat typical of COVID-19 pattern being observed. She was treated with noninvasive ventilation along with bronchodilators and O2. At the time of my evaluation today, she appears a lot better according to nursing and respiratory staff. She also reportedly has been feeling significantly better. She has minimum cough. Her gastrointestinal symptoms have also significantly come under control. PAST MEDICAL HISTORY: Patient has history of bronchial asthma. She reportedly lost significant weight and since then has had good control of her symptoms. She rarely requires rescue inhaler, but does stay on maintenance therapy with Dulera. In addition, she had history of bilateral pulmonary emboli after undergoing stripping of lower extremity veins. She was treated with anticoagulation for 6 months which was subsequently discontinued. Patient denies any cardiac problems. PAST SURGICAL HISTORY: She has had , tonsillectomy, cholecystectomy, stripping of veins, and genitourinary surgery. 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 She is a nonsmoker. ALLERGIES: NOTED. CURRENT MEDICATIONS: Reviewed. PHYSICAL EXAMINATION: This is a middle-aged woman who appears mildly short of breath during conversation. VITAL SIGNS: Noted. Patient has been afebrile for the past 3 days. HEENT: She is normocephalic. Oral exam is limited. CVS: 1st and 2nd heart sounds normal, regular rhythm. RESPIRATORY: Shows diminished breath sounds. Occasional crackles are heard. ABDOMEN: Soft. No significant edema is noted. LABORATORY DATA: Labs were all reviewed. Chest x-ray and CT chest - Actual films and reports were reviewed as well. ASSESSMENT: 1. THIS IS A 38 YEAR-OLD WOMAN ADMITTED WITH ACUTE HYPOXIC RESPIRATORY FAILURE. 2. VIRAL PNEUMONIA SECONDARY TO COVID-19. 3. PRIOR HISTORY OF PULMONARY EMBOLISM NOW WITH NEGATIVE CTA. 4. HISTORY OF BRONCHIAL ASTHMA AND OBESITY. RECOMMENDATIONS: 1. Patient clearly appears to have improved from pulmonary standpoint. Her effort tolerance is improved as well. I reassured her that she seems to have shown significant improvement and is on the path of recovery. 2. Will advise to send Interleukin 6 levels, ferritin, and CRP as a marker of inflammation. Unfortunately, I do not have admission values to compare these to. 3. Continue deep vein thrombosis prophylaxis. Continue supplemental O2, bronchodilators, and incentive spirometer. 4. Patient may end up getting to stay at home with home O2 therapy which very likely can be weaned in the next 1-2 weeks. I will be glad to assess her in outpatient setting upon discharge. Further recommendations pending clinical improvement.
--- NOTE | 2019-10-04 13:02 | DS ---
ADMISSION DIAGNOSIS: 1. COVID-19. 2. VOMITING, NAUSEA, AND DIARRHEA FOR ONE WEEK. 3. DEHYDRATION. 4. CHRONIC OBSTRUCTIVE PULMONARY DISEASE. DISCHARGE DIAGNOSIS: 1. COVID-19. 2. VOMITING, NAUSEA, AND DIARRHEA FOR ONE WEEK. 3. DEHYDRATION. 4. CHRONIC OBSTRUCTIVE PULMONARY DISEASE. DISCHARGE MEDICATIONS: Same as admission plus she will need O2 to ambulate and bedside for 24 hours. FOLLOW-UP: With Dr. Art and Dr. Fraga in 2 weeks. Patient is to stay isolated for another 7 days. She has actually had COVID-19 diagnosed a week before she came to the hospital here. She was in [facility] for IV fluids at that time. I think she had members of her family that had COVID-19. MEDICINES: Albuterol 2 puffs q 4 PRN, Dulera 2 puffs bid. BRIEF HISTORY: Patient was admitted short of breath with nausea, vomiting, and cough for 1 week. As stated before, she had been treated at [place] with IV fluids for several days and discharged. She had a temperature of 100.2 and went up to 102.8 on the . Her d-dimer was elevated to 11,000, elevated secondary to COVID-19. CT scan didn't show any pulmonary embolism as expected. Had a typical CT which did say it looked like COVID-19 pneumonia, fatty liver, and some splenomegaly. HOSPITAL COURSE: Patient was given IV fluids. For several days she felt bad. On the 3rd day, she was able to eat and was much better. We gradually decreased her fluids. Her WBC was 5.2. On the 9, chest x-ray showed some worsening patchy bilateral interstitial infiltrates. Patient was also treated with prophylactic Lovenox, some Ativan for anxiety and headaches, and IV medication for COVID-19 for 5 days. She is discharged on as above home medicines with follow-up. Prognosis is good. She was advised she will be short of breath and have problems for several weeks. Advised to quit smoking.
== END 2019-10-03 13:30 | disposition home or self-care (01) | DRG 177 ==
LOC: ED 04:52 → MED SURG 07:20 → OBSVTOIN 09:00
PROVIDERS: ADMIT General Practice; ATTEND General Practice
DX: U07.1 COVID-19 (principal); J12.89 Other viral pneumonia; J96.01 Acute respiratory failure with hypoxia; R11.2 Nausea with vomiting, unspecified; R19.7 Diarrhea, unspecified; E86.0 Dehydration; J44.9 Chronic obstructive pulmonary disease, unspecified; R51 Headache; F41.9 Anxiety disorder, unspecified; M79.10 Myalgia, unspecified site; Z86.711 Personal history of pulmonary embolism
CPT/HCPCS: 36000; 36415; 36600; 71045; 71260; 80053; 81001; 82375; 82728; 82803; 82962; 83036; 83520; 84484; 85025; 85027; 85379; 86140; 87040; 93005; 93041; 93268; 94660; 94760; 94762; 96374; 99285; J1650; J2270; J2405; A9270-GY

== ENCOUNTER 2023-06-08 08:39 | Emergency (ER) | payer OTHER ==
[2023-06-08 09:08] VITALS: BP 144/97; PULSE 86; RESP 18; O2SAT 98
--- NOTE | 2023-06-08 09:44 | ERPHSYRPT ---
- History of Present Illness Time Seen by Provider: 06/08/23 09:35 Source: patient Exam Limitations: no limitations Patient Subjective Stated Complaint: Needle stick Triage Nursing Assessment: Patient ambulated back to ED and transferred self to bed. Patient A+O X3. Patient's skin pink, warm and dry. 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 Patient was stuck in fingernail area to left hand 4th digit. Patient denies pain or discomfort. 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 The nurses did complete all of the paperwork for a accidental needle exposure. Timing/Duration: today Allergies/Adverse Reactions: Sulfa (Sulfonamide Antibiotics) Allergy (Severe, Verified 06/08/23 09:01) Hives Home Medications: Albuterol 8 gm Mdi Hfa [Ventolin Hfa MDI] 2 puffs IH Q4H PRN PRN 09/27/19 [History] Mometasone/Formoterol [Dulera 100 Mcg/5 Mcg Inhaler] 2 puff IH BID 09/27/19 [History] Hx Tetanus, Diphtheria Vaccination/Date Given: Yes Hx Influenza Vaccination/Date Given: Yes Hx Pneumococcal Vaccination/Date Given: No Immunizations Up to Date: Yes Travel Risk - International Travel Have you traveled outside of the country in past 3 weeks: No - Coronavirus Screening Are you exhibiting any of the following symptoms?: No Close contact with a COVID-19 positive Pt in past 14-21 Days: No - Vaccine Status Have you recieved a Covid-19 vaccination: Yes 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 - Vaccination Dates Dates if Unknown: na - Review of Systems Constitutional: No Fever, No Chills Eyes: No Symptoms Ears, Nose, & Throat: No Symptoms Respiratory: No Cough, No Dyspnea Cardiac: No Chest Pain, No Edema, No Syncope Abdominal/Gastrointestinal: No Abdominal Pain, No Nausea, No Vomiting, No Diarrhea Genitourinary Symptoms: No Dysuria Musculoskeletal: No Back Pain, No Neck Pain Skin: No Rash Neurological: No Dizziness, No Focal Weakness, No Sensory Changes Psychological: No Symptoms Endocrine: No Symptoms All Other Systems: Reviewed and Negative - Past Medical History Pertinent Past Medical History: Yes Neurological History: No Pertinent History ENT History: No Pertinent History Cardiac History: No Pertinent History Respiratory History: Asthma, Pulmonary Embolism Endocrine Medical History: No Pertinent History Musculoskeletal History: No Pertinent History GI Medical History: Gallbladder Disease History: No Pertinent History Psycho-Social History: No Pertinent History Female Reproductive Disorders: No Pertinent History Other Medical History: vericose vein pain. DVT - Past Surgical History Past Surgical History: Yes Neuro Surgical History: No Pertinent History Cardiac: No Pertinent History Respiratory: No Pertinent History Gastrointestinal: Cholecystectomy Genitourinary: No Pertinent History Female Surgical History: Section Other Surgical History: tonsils. bilat uretal implants - Social History Smoking Status: Never smoker How long have you smoked: 13 Exposure to second hand smoke: No Drug Use: none Patient Lives Alone: No - Female History Hx Last Menstrual Period: mirena Hx Now: No - Nursing Vital Signs Nursing Vital Signs: Initial Vital Signs Pulse Rate 86 06/08/23 09:02 Respiratory Rate 18 06/08/23 09:02 Blood Pressure 144/97 06/08/23 09:02 O2 Sat by Pulse Oximetry 98 06/08/23 09:02 Pain Scale Pain Intensity 0 - Physical Exam General Appearance: no apparent distress Extremity Exam: normal inspection, normal range of motion, other (The site of the needlestick is barely visible no active bleeding.) Neurologic Exam: alert, oriented x 3 Skin Exam: other (Site of needlestick is barely visible on the left ring finger.) SpO2 Interpretation: normal SpO2: 98 O2 Delivery: Room Air - Course Nursing assessment & vital signs reviewed: Yes Ordered Tests: Active Orders 24 hr Category Date Time Status Wound Care STAT Care 06/08/23 09:32 Ordered HIV PANEL - SOURCE PATIENT Stat Lab 06/08/23 09:32 Ordered - Progress Progress: unchanged Progress Note: 06/08/23 09:38 We did discuss with the employee the possible use of prophylactic medications but decided because of the profile of the source that that would probably not be necessary. Medical Desision Making - Risk of complications Minimal Risk: Minimal risk of morbidity - Departure Departure Disposition: Home Clinical Impression: Needlestick injury accident Condition: Stable Critical Care Time: No Referrals: [facility] [Primary Care Provider] - Follow up/PCP as directed
[2023-06-08 10:30] LABS: HIV 1/2 ANTIBODY PRESUMPTIVE NEGATIVE (NEGATIVE); HIV p24 AG - SOURCE ONLY PRESUMPTIVE NEGATIVE (NEGATIVE)
[2023-06-09 16:51] LABS: HIV Screen 4th Generation wRfx Non Reactive (Non Reactive)
[2023-06-09 16:52] LABS: HBsAg Screen Negative (Negative); Hep B Surface Ab, Quant <3.1 mIU/mL (Immunity>9.9); Hep C Virus Ab Non Reactive (Non Reactive)
== END 2023-06-08 10:02 | disposition home or self-care (01) ==
LOC: ER - EH 08:39
DX: S61.235A Puncture wound without foreign body of left ring finger without damage to nail, initial encounter (principal); W46.0XXA Contact with hypodermic needle, initial encounter; Y92.238 Other place in hospital as the place of occurrence of the external cause; Y99.0 Civilian activity done for income or pay; Z79.899 Other long term (current) drug therapy
CPT/HCPCS: 36415; 86317; 86689; 86803; 87340; 87389; 99283; G0472